=== PATIENT | male | born 1975 | race Caucasian/White ===

== ENCOUNTER → 2016-10-14 | Outpatient (CLI) | payer BC ==
[~2016-10-14] MED LIST: GADOBUTROL 10 ML VIAL IVP ONE
== END ==
LOC: FIMAGING 16:04
PROVIDERS: ATTEND Internal Medicine Infectious Disease
DX: M25.532 Pain in left wrist (principal); S52.615G Nondisplaced fracture of left ulna styloid process, subsequent encounter for closed fracture with delayed healing; S63.592D Other specified sprain of left wrist, subsequent encounter
CPT/HCPCS: A9585

== ENCOUNTER → 2017-06-04 | Outpatient (CLI) | payer BC | LOC: BMCIMAGING 16:44 | PROVIDERS: ATTEND Emergency Medicine | DX: M79.89 Other specified soft tissue disorders (principal) ==

== ENCOUNTER → 2017-06-05 | Outpatient (CLI) | payer BC | LOC: BMCIMAGING 09:55 | PROVIDERS: ATTEND Family Medicine | DX: M79.89 Other specified soft tissue disorders (principal) ==